=== PATIENT | female | born 1960 | race Caucasian/White ===

== ENCOUNTER 2017-11-12 13:08 | Emergency (ER) | payer BC ==
[2017-11-12 13:20] VITALS: BP 140/73; BMI 29.1
[2017-11-12] MEDS ORDERED: XYLOCAINE 1 % (PLAIN) ONE ×2 (13:54→14:23)
--- NOTE | 2017-11-12 14:06 | DR.EXTPAIN ---
HPI - Time seen Time seen: 14:03 - PCP Primary Care Physician: alicja - Complaint/Symptoms Chief Complaint Doctor Comments: Patient states she was watering her li and was going up the steps and fell and lacerated her right knee. She is complaining of pain and lacerations to her right knee with the pain being 10 of 10. She denies head trauma or LOC. States she is unsure of her last tetanus shot. Chief Complaint:: pt fell on brick steps and cut her right knee. - Nurses notes reviewed Nurses Notes Review: Yes - Source History Provided: Patient - Mode of arrival Mode of Arrival: Ambulatory - Timing Onset of Chief Complaint: 11/12/17 - Context History of: None - Associated signs and symptoms Associated Signs and Symptoms: Laceration, Pain PMH - PMH Past Medical History: Yes Past Medical History: Diabetes Past Surgical History: Yes Surgical History: - Family History History of Family Medical Conditions: Yes Family Medical History: Cancer - Social History Does patient currently use any type of tobacco product: No Have you used tobacco products in the last 12 months: No Type of Tobacco Use: None Does any household member use tobacco: No Alcohol Use: None Do you use any recreational Drugs:: No Lives With: Family Lives Where: Home - infectious screening In the last 2 months have you had wt loss of >10#?: NO Have you had fever, night sweats or hemotysis?: No Have you traveled outside the country in the last 6 months?: No Isolation: Standard ROS - Review of Systems Constitutional: No Symptoms Reported Eyes: No Symptoms Reported. negative: See HPI, Eye Pain, Blurred Vision, Tearing, Discharge, Photophobia, Diplopia, Other ENTM: No Symptoms Reported Respiratoy: No Symptoms Reported. negative: See HPI, Productive Cough, Non- Productive Cough, Moist Cough, Dry Cough, Hacking Cough, Barking Cough, Brassy Cough, Orthopnea, Short of Breath, Stridor, Wheezing, Hemoptysis, Other Cardiovascular: No Symptoms Reported Gastrointestinal/Abdominal: No Symptoms Reported Genitourinary: No Symptoms Reported Neurological: No Symptoms Reported, Problems Walking (right knee pain) Musculoskeletal: No Symptoms Reported, Right, Knee Integumentary: No Symptoms Reported, Wound (right knee with two laceration 6 cm and 3 cm) Hematologic/Lymphatic: No Symptoms Reported Endocrine: No Symptoms Reported Psychiatric: No Symptoms Reported PE - Vital Signs Vitals: Temperature 98.6 F Pulse Rate 86 Respiratory Rate 16 Blood Pressure 140/73 O2 Sat by Pulse Oximetry 98 - General Limitations: No Limitations General Appearance: Alert, In Distress (moderate) - Head Head Exam: Normal Inspection, Atraumatic, Normocephalic - Eyes Eye exam: Normal Appearance, PERRL, EOMI. negative: Scleral Icterus, Conjunctival Injection, Nystagmus, Miosis, Mydrasis, Periorbital Swelling, Periorbital Tenderness, Other - ENT ENT Exam: Normal Exam, Normal Oropharynx, Normal External Ear Exam, Mucous Membranes Moist, TM's Normal Bilaterally - Neck Neck Exam: Normal Inspection, Full ROM, Trachea Midline - Chest Chest Inspection: Normal Inspection, Symmetric Chest Wall Rise - Respiratory Respiratory Exam: Normal Lung Sounds Bilat Respiratory Exam: Bilateral Clear to Auscultation - Cardiovascular Cardiovascular Exam: Regular Rate, Normal Rhythm, Normal Heart Sounds - Abdominal Exam Abdominal Exam: Normal Inspection, Normal Bowel Sounds Abdominal Tenderness: negative: RUQ, RLQ, LUQ, LLQ, Epigastrium, Suprapubic, Diffuse, Mild, Moderate, Severe, Other - Extremities Extremities Exam: Normal Inspection, Full ROM, Normal Capillary Refill - Upper Extremities Shoulder Exam: Normal Inspection, Full ROM. negative: Tenderness, Swelling, Abrasion, Laceration, Ecchymosis, Deformity, Crepitus, Dislocation, Erythema, Tenderness over AC Joint, Other Arm Exam: Normal Inspection, Full ROM Elbow Exam: Normal Inspection, Full ROM Forearm Exam: Normal Inspection, Full ROM Hand Exam: Normal Inspection, Full ROM Neuromotor Exam: Normal Exam Neurosensory Exam: Normal Exam. negative: Radial Nerve, Ulnar Nerve, Median Nerve, Axillary Nerve, 2-Point Discrimination, Other Hand Tendon Exam: negative: Flexor Digitorium Profundus (Location), Flexor Digitorium Superficialis (Location), Extensor Tendon (Location), Other Upper Ext. Vascular Exam: Capillary Refill, Radial Pulse (normal) - Lower Extremities Hip/Pelvis Exam: Normal Inspection, Full ROM Upper Leg Exam: Normal Inspection, Full ROM Knee Exam: Normal Inspection, Full ROM, Tenderness (right knee with two laceration 6 and 3 cm linear), Laceration Lower Leg Exam: Normal Inspection, Full ROM Ankle Exam: Normal Inspection, Full ROM Foot/Toe Exam: Normal Inspection, Full ROM Neurovascular/Tendon Exam: Normal Capillary Refill Gait Exam: Not Tested/Not Observed - Back Back Exam: Normal Inspection, Full ROM - Neurological Neurological Exam: Alert, Oriented X3, CN II-XII Intact, Reflexes Normal. negative: Normal Gait (gait not tested) - Psychiatric Psychiatric Exam: Normal Affect, Normal Mood - Skin Skin Exam: Warm, Dry, Intact, Normal Color Type of Lesion: negative: Rash, Abscess, Laceration, Foreign Body, Bite/Sting, Abrasion, Other Distribution: negative: Generalized, Involves Palms/Soles, Head, Face, Neck, Thorax, Chest, Back, Abdomen, Genitals, LUE, LLE, RUE, RLE, Other Description: negative: Size, Tenderness, Erythematous, Swelling, Macular, Papular, Vesicular, Blisters, Cofluent, Bullous, Petechial, Purpuric, Urticarial , Crusting, Discharge, Fluctuant, Indurated, Other Procedures - Laceration/Wound Repair Right Knee Wound Length (cm): 7 Wound's Depth, Shape: Superficial, Linear Wound Explored: foreign body removed Irrigated w/ Saline (ccs): 220 Betadine Prep?: Yes Anesthesia: 1% Lidocaine Volume Anesthetic (ccs): 15 Wound Debrided: moderate Wound Repaired With: sutures Suture Size/Type: 3:0, Nylon Number of Sutures: 8 Layer Closure?: No Sterile Dressing Applied?: Yes Splint Applied?: No Sling Applied?: No - Diagnosis Discharge Problem: Laceration of right knee Qualifiers: Encounter type: initial encounter Qualified Code(s): S81.011A - Laceration without foreign body, right knee, initial encounter Contusion of right knee Qualifiers: Encounter type: initial encounter Qualified Code(s): S80.01XA - Contusion of right knee, initial encounter Fall Qualifiers: Encounter type: initial encounter Qualified Code(s): W19.XXXA - Unspecified fall, initial encounter - Discharge Plan Disposition: HOME, SELF-CARE Condition: Stable Prescriptions: Cephalexin [KEFLEX CAP 500 MG *] 500 mg PO TID #30 cap Ketorolac Tromethamine [Toradol Tab] 10 mg PO Q8H PRN #12 tab PRN Reason: Pain - Follow ups/Referrals Follow ups/Referrals: Margarito Seals [Primary Care Provider] - 3 days - Instructions Instructions: Laceration Care, Adult, Sutured Wound Care, Contusion, Easy-to- Read
[2017-11-12] MEDS ORDERED: STERILE WATER IRRIGATION IR ONE (14:20)
[2017-11-12] MEDS ORDERED: BACITRACIN ZINC ONE (14:36)
[2017-11-12] MEDS ORDERED: KEFLEX CAP 500 MG PO ONE ×2 (14:37→14:39)
[2017-11-12] MEDS ORDERED: ADACEL TDaP IM ONE ×2 (14:38→14:40)
[2017-11-12] MEDS ORDERED: HYDROGEN PEROXIDE 3% ONE (14:45)
--- NOTE | 2017-11-12 15:08 | RAD ---
HISTORY: Fall with laceration Study: Three views of the right knee Comparison: None Findings: Images demonstrate medial and patellofemoral compartment space narrowing. Subchondral sclerosis is se en within the tibial plateau. Mild spurring the tibial spines is noted. Minimal spurring is seen mohsen g the posterior margin of the patella. IMPRESSION: 1. Degenerative changes as noted above. Reported By:
== END 2017-11-12 15:14 | disposition home or self-care (01) ==
LOC: ER 13:19
PROC: 0YQFXZZ Repair Right Knee Region, External Approach (ICD-10-PCS; principal; 2017-11-12)
DX: S81.011A Laceration without foreign body, right knee, initial encounter (principal); S80.01XA Contusion of right knee, initial encounter; W19.XXXA Unspecified fall, initial encounter; Y92.9 Unspecified place or not applicable
CPT/HCPCS: 12002; 73564; 90471; 99282; A4217; J2001